=== PATIENT | female | born 2000 | race Caucasian/White ===

== ENCOUNTER 2025-01-09 17:58 | Emergency (ER) | payer OTHER, SELFPAY ==
[2025-01-09 18:18] VITALS: BP 140/82; PULSE 95; RESP 17; TEMP 36.6; O2SAT 99
--- NOTE | 2025-01-09 18:34 | ED_ITS ---
HPI - Wound/Laceration General Chief Complaint: Wound/Laceration Stated Complaint: cut finger with knife Time Seen by Provider: 01/09/25 18:34 Source: patient Mode of arrival: ambulatory Limitations: no limitations History of Present Illness HPI narrative: This is a 24 year old female that presents to the ER for laceration to the left 2nd finger. Sustained just prior to arrival. Reports she accidentally cut herse lf with a knife. She is up to date on tetanus. Denies decreased ROM or numbness. Review of Systems Review of Systems: CONSTITUTIONAL: Denies fever SKIN: Reports laceration All systems reviewed & are unremarkable except as noted in HPI and below PMFSH Past Medical History Medical History (Updated 01/09/25 @ 18:40 by Eloisa Santos PA-C) No active medical problems Social History Social History (Updated 01/09/25 @ 18:38 by Eloisa Santos PA-C) Smoking status: Never smoker Exam Narrative: GENERAL: Well-appearing, well-nourished, and in no acute distress. HEAD: Normocephalic, atraumatic. EYES: EOMI. EXTREMITIES: Normal range of motion. 1.5cm linear laceration to the left 2nd finger dorsal surface proximal phalanx into subcutaneous tissue SKIN: Warm, dry, no rash. NEURO: No focal deficits. Alert and oriented x3. PSYCH: Normal mood and affect Course Course Emergency Course: patient educated on wound care Vital Signs Vital signs: Vital Signs Temperature 97.8 F 01/09/25 18:18 Pulse Rate 95 01/09/25 18:18 Respiratory Rate 17 01/09/25 18:18 Blood Pressure 140/82 01/09/25 18:18 Pulse Oximetry 99 01/09/25 18:18 Oxygen Delivery Room Air 01/09/25 18:18 Temperature 97.8 F 01/09/25 18:18 Pulse Rate 95 01/09/25 18:18 Respiratory Rate 17 01/09/25 18:18 Blood Pressure 140/82 01/09/25 18:18 Pulse Oximetry 99 01/09/25 18:18 Oxygen Delivery Room Air 01/09/25 18:18 Procedures Laceration Laceration 1: Date: 01/09/25 Time: 18:39 Site: hand Side (If applicable): left Size (cm): 1.5 Description: linear Depth: simple, single layer Local Anesthetic: lidocaine 1% Amount of anesthesia used (mL): 1 Pre-repair: wound explored and irrigated ====== Skin Level ====== Skin layer closed with: nylon Size (cm): 4-0 Number of sutures: 2 Technique: simple, interrupted ====== Subcutaneous Layer ====== ====== Muscle Layer ====== ====== Tendon Layer ====== MDM - Wound/Laceration MDM Narrative Medical decision making narrative: Patient presents to the ER for laceration to left second finger. Wound irrigated and closed with sutures. Patient is up to date on tetanus vaccination. Educated on further wound care. She is to follow up with PCP. Given warnings to return to the ER Differential Diagnosis Differential diagnosis: Likely laceration, abrasion and avulsion of skin Critical Care Time Critical Care Time Critical Care Time: No Discharge Plan Discharge Clinical Impression: Laceration Instructions: Care For Your Stitches (ED), Laceration (ED) Additional Instructions: Return to the emergency department if you experience fever, redness or swelling of your wound, abnormal drainage from your wound, or any other symptoms that are concerning to you. Apply antibiotic ointment daily. Do not soak the wound. Clean with mild soap and water daily Follow-up with your primary care doctor for suture removal in 10-14 days. Patient Language: [place] Islander Follow-up/Referrals: John Fritz MD [Physician] - 2 Weeks UNKNOWN,DOCTOR [Primary Care Provider] -
--- OUTSIDE RECORDS SUMMARY | 2025-01-09 18:49 | XMS_ITS | Clinical Summary ---
Author Organization [facility] althcare Address [address] [place] [address] Care Team Providers Care Human Resources Assistant Name Role Phone Arvind Desai MD Primary Care Provider +1- [phone] Allergies No known active allergies Medications HANNAH 28, 0.3-30 mg-mcg per tablet TAKE ONE TABLET BY MOUTH ONCE DAILY ROUTINELY. 28 tablet 11 09/19/2019 Active Active Problems Problem Noted Date Diagnosed Date Acute non-recurrent maxillary sinusitis 10/01/20 21 Social History Tobacco Use Types Packs/Day Years Used Date Smoking Tobacco: Never Assessed Comments No Sex and Gender Information Value Date Recorded Sex Assigned at Not on file Legal Sex Female 9:12 PM CDT Gender Identity Not on file Sexual Orientation Not on file Last Filed Vital Signs Vital Sign Reading Time Taken Comments Blood Pressure 145/78 04/01/2022 6:57 AM CDT Pulse 65 04/01/2022 6:57 AM CDT Temperature 36.8 C (98.2 F) 04/01/2022 6:57 AM CDT Respiratory Rate 17 04/01/2022 6:57 AM CDT Oxygen Saturation 98% 04/01/2022 6:57 AM CDT Inhaled Oxygen Concentration - - Weight 59 kg (130 lb) 04/01/2022 6:57 AM CDT Height 165.1 cm (5' 5 ) 04/01/2022 6:57 AM CDT Body Mass Index 21.63 04/01/2022 6:57 AM CDT Plan of Treatment Health Maintenance Due Date Last Done Comments Pap Smear 2002 Meningococcal B Vaccine (1 of 2 - Standard) 2018 DTaP,Tdap,and Td Vaccines (7 - Td or Tdap) 08/23/2023 08/23/2013, 10/29/2006, 10/19/2003, Additional history exists COVID-19 Vaccine (2023- season) 2024 03/17/2022 Influenza Vaccine (#1) 2024 RSV Vaccines and 60 Years or Older (1 - 1-dose 75+ series) 2077 AMB Pneumococcal 0-64 yrs Aged Out 10/19/2003 No longer eligible based on patient's age to complete this topic AMB Pneumococcal 65+ yrs Discontinued 10/19/2003 HIB Vaccines Completed 10/19/2003, 12/2002, 2002 Hepatitis B Vaccines Completed 10/19/2003, 03/01/2003, 2002 IPV Vaccines Completed 10/29/2006, 04/2003, 03/01/2003, Additional history exists MMR Vaccines Completed 10/29/2006, 2003 HPV Vaccines Completed 02/27/2014, 10/01, 08/23/2013 Varicella Vaccines Completed 04/05/2014, 0 05/23/2004, 08/15/2003 Hepatitis A Vaccines Completed 10/12/2014, 04/05/20 14 Meningococcal ACWY Vaccine Completed 07/05/2019, RSV Vaccines <20 Months Aged Out No l onger eligible based on patient's age to complete this topic Insurance ([facility]) AET[employer] ([facility]) AET [employer] Care Teams Human Resources Assistant Relationship Specialty Start Date End Date Arvind Desai MD [address] [place] [address] PCP - General Call Centre Supervisor 12/25/17
--- OUTSIDE RECORDS SUMMARY | 2025-01-09 18:49 | XMS_ITS | Continuity of Care Document ---
Author Name [facility] Organization [facility] Care Team Providers Care Watchmaker Apprentice Name Role Phone [facility] Unavailable Unavailable Encounters Combined list of: 1) Encounters from Department of Veterans Affairs facilities going backup to the last 18 months, not all VA inpatient encounters are included; 2) Encounters from the Department of [facility] facilities going backup to 280 months. Location Location Details Encounter Type Encounter Number Reason For Visit Attending Provider ADM Date DC Date Status Disposition Source GRISELDA Schroeder([place] Initial Entry) OUTPATIENT [id number] Notes Entered by: DELROY GRANDE 22 May 2020 0610 ------- ------- ------- ------- -- DAY 1 583 JOSLYN STEWART 05/22 Admitted General Ant Hooper [facility] GRISELDA Kern([place]) GRISELDA Schroeder([place] Initial Entry) OUTPATIENT [id number] Notes Entered by: DELROY GRANDE 24 May 2020 0614 ------- ------- ------- ------- -- DAY 3 583 TIMO MCKAY 05/24 Admitted General GRISELDA Bills([place]) GRISELDA Schroeder(COVID 19) OUTPATIENT [id number] Notes Entered by: Alex DELGADO 05 Jun 2020 1259 ------- ------- ------- ------- -- Late Entry: Cleared from control led monitor ing on 04 June 2020 JENNY DELGADO 06/05 Released w/o Limitations General GRISELDA Bills(COVI D 19) GRISELDA Schroeder(IEP Optometry ) OUTPATIENT [id number] Notes Entered by: Ankur MACIAS 06 Jun 2020 0628 ------- ------- ------- ------- -- Optomet ry Dexteri RANDY King 06/06 Released w/o Limitations [place]) OUTPATIENT [id number] MEGHANN ADAME 06/06 Released w/o Limitations [place]PAT[place] [id number] Notes Entered by: BOB GARCIA 15 Jun 2020 0728 ------- ------- ------- ------- -- [facility] TIMOTHY HUANG 06/15 Released w/o Limitations [place] OUTPATIENT [id number] Notes Entered by: DELROY GRANDE 30 Jul 2020 0727 ------- ------- ------- ------- -- B CO 2-48 PED ALINA REIS 07/30 Released w/o Limitations [place] Procedures Combined list of: 1) Procedures from Department of Veterans Affairs facilities going back up to thelast 18 months, not all VA non-surgical procedures are included; 2) All procedures from the Department of Defense facilities. Procedure Procedure Type Code Date Perfomer Comments Sour e Venipuncture Venipuncture 17634 JOSLYN STEWART Meningococcal Polysaccharide Diphtheria Toxoid Conjugate Vaccine Meningococcal Polysaccharide Diphtheria Toxoid Conjugate Vaccine 24813 TIMO MCKAY Immunization Administration By Injection, One Vaccine Immunization Administration By Injection, One Vaccine 93170 COLISAO, TIMO [facility] Immunization Administration By Injection, Each Additional Vaccine Immunization Administration By Injection, Each Additional Vaccine 34437 COLISAO, TIMO [facility] Hep B Vaccine (Active); Adolescent (2 Dose Schedule) Hep B Vaccine (Active); Adolescent (2 Dose Schedule) 81793 COLISAO, TIMO M [facility] Tdap Vaccine Tdap Vaccine 55915 COLIO, TIMO M [facility] Vaccines Viral Polio, Inactivated Vaccines Viral Polio, Inactivated 96629 COLIO, TIMO M [facility] Physician Supervised Injection Intramuscular Antibiotic Physician Supervised Injection Intramuscular Antibiotic 51787 [facility], TIMO [facility] Vaccines Adenovirus Type 4 Live, For Oral Use Vaccines Adenovirus Type 4 Live, For Oral Use 54478 COLIO, TIMO [facility] Vaccines Adenovirus Type 7 Live, For Oral Use Vaccines Adenovirus Type 7 Live, For Oral Use 36973 COLISAO, TIMO M [facility] Ophthalmological New Patient Start Intermediate Level Care Ophthalmological New Patient Start Intermediate Level Care 59440 JOLLY ROONEY [facility] Determination Of Refractive State Determination Of Refractive State 78951 JOLLY ROONEY [facility] Spectacles Services Fitting Monofocal Except For Aphakia Spectacles Services Fitting Monofocal Except For Aphakia 19199 JOLLY ROONEY [facility] Audiometry Group Testing Audiometry Group Testing 61634 MEGHANN ADAME [facility] Nutrition cla es, non-physician provider, per se TIMOTHY Viramontes [facility] HEPATITIS B VACCINE (HEPB), ADOLESCENT, 2 DOSE SCHEDULE, FOR INTRAMUSCULAR USE 0 [facility] NUTRITION CLASSES, NON-PHYSICIAN PROVIDER, PER SESSION 0 [facility] AUDIOMETRIC TESTING OF GROUPS 0 [facility] FITTING OF SPECTACLES, EXCEPT FOR APHAKIA; MONOFOCAL 0 [facility] ADENOVIRUS VACCINE, TYPE 7, LIVE, FOR ORAL USE 0 [facility] COLLECTION OF VENOUS BLOOD BY VENIPUNCTURE 0 [facility] Social History Combined list of available smoking, tobacco, and other social history from Department of Defense and Veterans Affairs facilities. Social History Type Response Date Comment Sour e This section is an empty social history section. [facility]
== END 2025-01-09 18:45 | disposition home or self-care (01) ==
PROVIDERS: Emergency Provider Physician Assistant
DX: S61.211A Laceration without foreign body of left index finger without damage to nail, initial encounter (principal); W26.0XXA Contact with knife, initial encounter
CPT/HCPCS: 12001; 99282

== ENCOUNTER 2025-11-20 07:36 | Emergency (ER) | payer OTHER, SELFPAY ==
--- NOTE | ~2025-11-20 | XR_ITS ---
Examination: XR ankle RT min 3V Clinical History: lateral ankle pain after a fall this morning Comparison: None Technique: 4 views right ankle Findings/impression: 1. No fracture or dislocation right ankle. Reviewed, dictated and finalized at location R. O GAMES STORYWRITER
[2025-11-20 07:36] VITALS: BP 133/72; PULSE 90; RESP 18; TEMP 36.8; O2SAT 100
--- OUTSIDE RECORDS SUMMARY | 2025-11-20 07:44 | XMS_ITS | Clinical Summary ---
Author Organization [facility] althcare Address [address] [place] [address] Care Team Providers Care Event Coordinator Marketing And Sales Name Role Phone Arvind Desai MD Primary Care Provider +1- [phone] Allergies No known active allergies Medications HANNAH [...] 6:57 AM CDT Height 165.1 cm (5' 5) 04/01/2022 6:57 AM CDT Body Mass Index 21.63 04/01/2022 6:57 AM CDT Plan of Treatment Health Maintenance Due Date Last Done Comments Pap Smear 2002 Depression Screening 2014 Meningococcal B Vaccine (1 of 2 - Standard) 2018 DTaP,Tdap,and Td Vaccines (7 - Td or Tdap) 08/23/2023 08/23/2013, 10/29/2006, 10/19/2003, Additional history exists COVID-19 Vaccine (2 - 2024- season) 2025 03/17/2022 Influenza Vaccine (#1) 2025 RSV Vaccines and 60 Years or Older (1 - 1-dose 75+ series) 2077 AMB Pneumococcal 0-49 yrs Aged Out 10/19/2003 No longer eligible based on patient's age to complete this topic AMB Pneumococcal 50+ yrs Discontinued 10/19/2003 HIB Vaccines Completed 10/19/2003, [...] patient's age to complete this topic Insurance ([facility] [place] [place]) AETNA [employer] ([facility] [place]) AETNA xaitment Care Teams Event Coordinator Marketing And Sales Relationship Specialty Start Date End Date Arvind Desai MD PCP - General Livestock Yard Supervisor 12/25/17
--- NOTE | 2025-11-20 08:48 | ED_ITS ---
HPI - Extremity Injury (Lower) General Chief Complaint: Extremity Injury, Lower Stated Complaint: right ankle injury Time Seen by Provider: 11/20/25 08:09 Source: patient and family Mode of arrival: ambulatory History of Present Illness HPI Narrative: This is a 25-year-old female that had a fall after she tripped over her dog causing right ankle causing pain inflammation currently rating her pain a 4/10 no other injuries noted has no numbness or tingling has good range of motion although tender with movement and palpation. complaint: hip injury Onset (ago): hour(s) Injury: Right: ankle (Pain with swelling) Type of Injury: blunt Place: street/outdoors Severity: moderate Severity scale (1-10): 4 Relieving factors: nothing Exacerbating factors: movement and palpation Context: fall Review of Systems Review of Systems: All systems reviewed & are unremarkable except as noted in HPI and below PMFSH Past Medical History Medical History No active medical problems Social History Social History Smoking status: Never smoker Exam Const: General: healthy appearing and no acute distress Nutritional Appearance: well nourished Orientation/consciousness: patient oriented x3 Limitations: no limitations Resp: Effort & Inspection: normal respiratory effort Auscultation: clear to auscultation bilaterally Cardio: Rate: regular rate Rhythm: regular rhythm GI: Auscultation: normal bowel sounds Extrem: Other: Tender bilateral malleolus with palpation Course Course Emergency Course: Medical decision making narrative: The patient was evaluated by myself in the emergency department. History obtained from the patient who is an independent historian and physical exam performed witnessed by tech. Patient had ice applied to her right ankle declined any pain medicine at this time. X-ray shows no acute fractures. Repeat assessment: The patient is doing well on repeat exam with no acute distress Symptoms stable since arrival to the emergency department Repeat vitals are stable Patient agrees with discussion after shared medical decision-making and agrees with discharge All questions answered to the patient's satisfaction Follow-up in 3 to 5 days with primary care physician. Vital Signs Vital signs: Vital Signs Temperature 36.8 C 11/20/25 07:36 Pulse Rate 90 11/20/25 07:36 Respiratory Rate 18 11/20/25 07:36 Blood Pressure 133/72 11/20/25 07:36 Pulse Oximetry 100 11/20/25 07:36 Oxygen Delivery Room Air 11/20/25 07:36 Temperature 36.8 C 11/20/25 07:36 Pulse Rate 90 11/20/25 07:36 Respiratory Rate 18 11/20/25 07:36 Blood Pressure 133/72 11/20/25 07:36 Pulse Oximetry 100 11/20/25 07:36 Oxygen Delivery Room Air 11/20/25 07:36 MDM Differential Diagnosis Differential Diagnosis: Ankle sprain Critical Care Time Critical Care Time Critical Care Time: No Discharge Plan Discharge Clinical Impression: Ankle sprain and strain Patient Disposition: Home Condition: Stable Instructions: Antibiotic Form, Ankle Sprain (ED) Additional Instructions: Can take Tylenol or Motrin as needed continue Rios wrap can continue ice rest elevation of foot when resting and follow with primary if symptoms persist or worsen. Patient Language: Hungarian Follow-up/Referrals: Michi Bella MD [Primary Care Provider, Internal Medicine] Time of Disposition: 08:52
[2025-11-20 08:49] VITALS: BP 149/77; PULSE 86; RESP 16; O2SAT 100
--- OUTSIDE RECORDS SUMMARY | 2025-11-20 08:53 | XMS_ITS | Clinical Summary ---
Author Organization [facility] althcare Address [address] [place] [address] Care Team Providers Care Machine Veneer Repairer Name Role Phone Arvind Desai MD Primary Care Provider +1- [phone] Allergies No known active allergies Medications HANNAH [...] age to complete this topic Insurance ([facility]) [employer] ([facility]) AETNA [employer] Care Teams Machine Veneer Repairer Relationship Specialty Start Date End Date Arvind Desai MD PCP - General Decorative Engraver Apprentice 12/25/17
== END 2025-11-20 08:56 | disposition home or self-care (01) ==
PROVIDERS: Emergency Provider Emergency Medicine; PCP Internal Medicine
DX: S93.401A Sprain of unspecified ligament of right ankle, initial encounter (principal); S96.911A Strain of unspecified muscle and tendon at ankle and foot level, right foot, initial encounter; W18.09XA Striking against other object with subsequent fall, initial encounter
CPT/HCPCS: 73610; 99283